=== PATIENT | male | born 1970 | race Caucasian/White ===

== ENCOUNTER 2024-04-15 01:39 | Inpatient (IN) | payer OTHER, SELFPAY ==
[2024-04-14 18:19] VITALS: BP 182/100
[2024-04-14 19:00] LABS: % Basophils 0.2 % (0-2); % Immature Granulocytes 0.5 % (0-0.5); % Lymphocytes 2.2 % (20.5-51.1); % Monocytes 2.8 % (1.7-9.3); % Neutrophils 94.3 % (42.2-75.2); Absolute Immature Granulocytes 0.1 10^3/uL (0-0.05); Absolute Lymphocytes 0.4 10^3/uL (1.2-3.4); Absolute Monocytes 0.5 10^3/uL (0.1-0.6); Absolute Neutrophils 17.6 10^3/uL (1.4-6.5); Hematocrit 49.2 % (39.0-52.0); Hemoglobin 17.3 g/dL (13.0-18.0); Mean Corp Hgb Conc. 35.2 g/dL (33.0-37.0); Mean Corpuscular Volume 82.6 fL (80.0-94.0); Mean Platelet Volume 8.7 fL (7.4-10.4); Nucleated Red Blood Cells % 0 % (-); Platelet Count 369 10^3/uL (130-400); Red Blood Cell Count 5.96 10^6/uL (4.70-6.10); Red Cell Dist. Width 13.2 % (11.5-14.5); White Blood Cell Count 18.7 10^3/uL (4.8-10.8)
[2024-04-14 19:13] LABS: ALT (SGPT) 27 U/L (0-50); AST (SGOT) 27 U/L (17-59); Albumin 4.7 g/dl (3.5-5.0); Alkaline Phosphatase 92 U/L (38-126); Blood Urea Nitrogen 16 mg/dl (9-20); Calcium 9.9 mg/dl (8.4-10.2); Carbon Dioxide 15 mmol/L (22-30); Chloride 104 mmol/L (98-107); Glucose 162 mg/dl (70-99); Potassium 4.6 mmol/L (3.5-5.1); Sodium 134 mmol/L (135-145); Total Bilirubin 1.1 mg/dl (0.2-1.3); Total Protein 7.6 g/dl (6.3-8.2); Urine Albumin 4+ (Neg - Trace); Urine Bilirubin 1+ (Negative); Urine Character Cloudy (Clear); Urine Color Brown; Urine Glucose 1+ (Negative); Urine Ketone 3+ (Negative); Urine Leukocyte 1+ (Negative); Urine Nitrite Negative (Negative); Urine Occult Blood 4+ (Negative); Urine Specific Gravity 1.025 (<1.030); Urine Urobilinogen 1+ (Neg - 1+); eGFR > 60.00
[2024-04-14 19:27] VITALS: BMI 32.7
--- NOTE | 2024-04-14 19:27 | EDRN ---
Pt had lithotripsy in [place], [place] today. Pt left iw no pain. Pt developed pain that steadily increased. Pt called doctor and said he was unable to take tylenol because he was nauseous. He was told to wait a little bit. Pt took tylenol on way
home from having procedure done and he vomited on way home. Every time pt tried to take tylenol, he vomited. Pt advised to go to ED. Pt has pain L kidney. Pt denies nausea currently, did have it earlier. Pt says he thinks he is dehydrated. Pt
has urinated few times since procedure.
--- NOTE | 2024-04-14 19:34 | ED.GENMED ---
History of Present Illness
General
Chief Complaint: Post Operative Problem(s)
Time Seen by Provider: 04/14/24 19:28
History of Present Illness
History of Present Illness:
53-year-old male history of kidney stones status post lithotripsy this morning presenting with left flank pain. Patient states that he was discharged from hospital around noon, pain started around 1 PM. Patient reports attempting to take Tylenol
but had episode of vomiting. Patient reports hematuria since procedure which has been at baseline for patient. No diarrhea or fevers
Phy Exam
Physical Exam
Physical Exam:
General: Alert, acute distress secondary to pain
Head: NCAT
Eyes: clear conjunctiva
Neck: supple
Cardiac: regular rate and rhythm, no murmur
Lungs: clear to auscultation bilaterally. No wheezes, rales, or rhonchi. Speaking full unlabored sentences. No respiratory distress.
Abdomen: soft, nondistended nontender. No rebound or guarding. left cva tenderness. no overlying ecchymosis
MSK: no lower extremity edema bilaterally. No deformity
Skin: warm, diaphoretic
Neuro: Alert and oriented x3. no focal deficits
Course
Orders/Labs/Results
Orders:
Orders
04/14/24 18:40
Complete Blood Count/With Diff Urgent
Comprehensive Metabolic Panel Urgent
Lactic Acid Urgent
Urinalysis Reflex To Culture Urgent
Date Specimen was Collected: 04/14/24
Time Specimen was Collected: 18:26
Urine Microscopic Reflex Cult Urgent
Urine Culture Urgent
SONAM Source: U
Specimen Description:
Date Specimen was Collected: 04/14/24
Time Specimen was Collected: 18:26
04/14/24 19:33
CT Abd/pelvis W Iv Cont Urgent
Comment:
Reason For Exam: left flank pain, lithotriopsy today
Morphine Sulfate 4 mg IV NOW STA
Ondansetron Injectable [Zofran] 4 mg IV NOW STA
04/14/24 19:34
0.9% Sodium Chloride 1000 ml [Nss] 1,000 ml IV BOLUS
04/14/24 20:59
Morphine Sulfate 4 mg IV NOW STA
04/14/24 23:29
HYDROmorphone [Dilaudid] 0.5 mg IV NOW STA
Abnormal Lab Results
04/14/24
18:40
WBC 18.7 H 10^3/uL
(4.8-10.8)
Abs Immat Gran (auto) 0.1 H 10^3/uL
(0-0.05)
Absolute Neuts (auto) 17.6 H 10^3/uL
(1.4-6.5)
Absolute Lymphs (auto) 0.4 L 10^3/uL
(1.2-3.4)
Neutrophils % 94.3 H %
(42.2-75.2)
Lymphocytes % 2.2 L %
(20.5-51.1)
Sodium 134 L mmol/L
(135-145)
Carbon Dioxide 15 L mmol/L
(22-30)
Glucose 162 H mg/dl
(70-99)
Lactic Acid 3.0 H mmol/L
(0.7-2.0)
Urine Ketones 3+ A
(Negative)
Ur Occult Blood Reflex 4+ A
(Negative)
Urine Bilirubin 1+ A
(Negative)
Leukocyte Esterase Rfl 1+ A
(Negative)
Urine RBC 60-70 A /HPF
(0-2)
Urine Bacteria (Reflex) Few A
(Negative)
Urine Glucose 1+ A
(Negative)
Urine Albumin (Reflex) 4+ A
(Neg - Trace)
04/14/24 18:40
04/14/24 18:40
Vital Signs
Initial and Last Documented VS:
Initial Vital Signs
Temp Pulse Resp BP Pulse Ox
98.4 F 66 35 182/100 100
04/14/24 18:19 04/14/24 18:19 04/14/24 18:19 04/14/24 18:19 04/14/24 18:19
Last Documented Vital Signs
Temp Pulse Resp BP Pulse Ox
98.3 F 98 24 179/103 96
04/14/24 23:40 04/15/24 00:00 04/14/24 19:40 04/15/24 00:00 04/15/24 00:00
MDM/Problems Addressed
Differential Diagnosis Includes:
Kidney stone, UTI, perforation
MDM/Problems Addressed:
Labs reviewed. Leukocytosis with white count 18.7. Electrolytes within normal limits. Elevated lactic acid. UA shows blood but low suspicion for infection. CT abdomen pelvis reviewed, significant for Large left perinephric hematoma, with small
focus of active hemorrhage.
Call placed to patient's urologist, Dr. Marsh at [facility]. Discussed with urology at [facility] who recommended no surgical intervention at this time, admission for serial H&H and pain control, agreed with transfer to patient's urology team. After
multiple attempts, unable to get in touch with urology at [facility] for transfer. Discussed with hospitalist for admission. Discussed with pt who is agreeable for admission. Pt states pain controlled with Dilaudid
*Critical Care Note
Total Time (30-74mins, 75-104mins- exclusive of procedures): Not Applicable
ED Attending Note
-
Portions of this chart may have been created with voice recognition software.� Occasional wrong word or��sound alike� substitutions may have occurred due to the inherent limitations of voice recognition software.
Discharge Plan
Departure
Patient Disposition: Admit
Date of Disposition: 04/15/24
Time of Disposition: 01:00
Presentation/result/management discussed w/ accepting MD/DO: Hospitalist
Discharge Problem:
Perinephric hematoma
Prescriptions:
No Action
trazodone 50 mg Tablet
50 mg PO HS
tamsulosin 0.4 mg Capsule
0.4 mg PO DAILY
dextroamphetamine-amphetamine 20 mg Tablet
20 mg PO DAILY PRN (Reason: adhd)
dextroamphetamine-amphetamine [Adderall XR] 30 mg Capsule,Extended Release 24hr
30 mg PO DAILY
irbesartan 300 mg Tablet
300 mg PO DAILY
vilazodone [Viibryd] 40 mg Tablet
40 mg PO DAILY
Referrals:
Doe Cao MD [Family Provider] -
Interventions
Interventions:
*Risk Screen - Suicide Last Done: 04/14/24 19:30
*General Assessment Last Done: 04/14/24 19:22
*Neglect/Abuse Screening Last Done: 04/14/24 19:30
*ED COVID-19 Vaccine History Last Done: 04/14/24 19:22
ED-Skin Assessment Last Done: 04/14/24 19:31
Discharge Date and Time
Print Language: KISWAHILI
[2024-04-14] MEDS: NSS 1000 IV (19:38)
[2024-04-14] MEDS: ZOFRAN 4 MG IV (19:38)
[2024-04-14 19:40] VITALS: BP 191/110
[2024-04-14] MEDS: MORPHINE SULFATE 4 MG IV ×2 (19:41→21:04)
[2024-04-14 19:42] LABS: Urine Amorphous Seen; Urine Red Blood Cell 60-70 /HPF (0-2)
[2024-04-14 19:47] LABS: Urine Calcium Oxalate Crystals Seen
[2024-04-14 19:50] LABS: Urine Bacteria Few (Negative)
[2024-04-14 20:00] VITALS: BP 183/113
[2024-04-14 21:00] VITALS: BP 171/108
[2024-04-14 22:00] VITALS: BP 207/106
[2024-04-14 23:00] VITALS: BP 190/117
[2024-04-14] MEDS: DILAUDID 0.5 MG IV (23:33)
[2024-04-15] VITALS (7 sets, daily range): BP systolic 116–188; BP diastolic 78–114; BMI 33.5
--- NOTE | 2024-04-15 01:14 | HPS.HSE ---
Family Physician
-
Family Physician: Doe Cao
Chief Complaint
-
Left-sided flank pain after lithotripsy
History of Present Illness
This is a 53-year-old Medical history significant for nephrolithiasis, hypertension, who is postop day 1 status post left lithotripsy coming in with acute left-sided flank pain and found to have a left-sided perinephric hematoma.
Patient reports history of nephrolithiasis with nonobstructing kidney stones mostly on the left. He reported that he had a intermittent flank pain for several months. We followed up with urology at [place] and had a scheduled procedure done
yesterday. Patient was feeling well prior to procedure. Underwent lithotripsy with print removal of all stones. Is unable to tell me the size or distribution of the stones at removal. Patient apparently felt okay immediately after the procedure
but was still under some degree of anesthesia. He said a few hours later after the anesthesia wore off he noticed severe flank pain with nausea and some vomiting. Pain was intolerable and he called for help from the office but will unable to reach
anyone. We decided to go to the emergency department. Initially was at a different emergency department but was not seen early now so he came to dose down.
He denies having any fevers or chills. Denies having any urinary symptoms.
In the emergency department he was afebrile, hypertensive to 180/100, satting at 96% on room air. He had a white count of 18, hemoglobin was 17.3, electrolytes notable for a bicarb of 15 but otherwise unremarkable. Creatinine was 1.2 with a BUN of
11. UA is positive for blood, trace leukocyte esterase and no nitrites. A CT of the abdomen and pelvis revealed a large left perinephric hematoma, small focus of active hemorrhage. Left intrarenal nonobstructing calculi.
Medical History
Past Medical History
Past Medical History: Reports HTN and Other (Nephrolithiasis)
Past Surgical History: Reports Urological
Social History
Tobacco: Non-smoker
Alcohol: Occasional
Drug: None
Personal: Single
Living: Alone
Employment: Employed
Family History
Family History: Hypertension
Allergies / Home Medications
Allergies reflects when Allergies were last updated in [facility].
Home Medications with original date entered in [facility]
Allergy/Medication List:
Allergies
Allergy/AdvReac Type Severity Reaction Status Date / Time
Penicillins Allergy Hives Verified 04/14/24 18:25
Home Medications
dextroamphetamine-amphetamine 20 mg tablet 20 mg PO DAILY PRN adhd 04/14/24
dextroamphetamine-amphetamine ER 30 mg 24hr capsule,extend release (Adderall XR) 30 mg PO DAILY 04/14/24
irbesartan 300 mg tablet 300 mg PO DAILY 04/14/24
tamsulosin 0.4 mg capsule 0.4 mg PO DAILY 04/14/24
trazodone 50 mg tablet 50 mg PO HS 04/14/24
vilazodone 40 mg tablet (Viibryd) 40 mg PO DAILY 04/14/24
Review of Systems
-
History Source: Patient
Constitutional: Reports No Symptoms
EENT: Reports No Symptoms
Respiratory: Reports No Symptoms
Cardiac: Reports No Symptoms
Abdomen/GI: Reports No Symptoms
: Reports Flank Pain
Musculoskeletal: Reports No Symptoms
Skin: Reports No Symptoms
Neurological: Reports No Symptoms
Endocrine: Reports No Symptoms
Hematologic/Lymphatic: Reports No Symptoms
Psych: Reports No Symptoms
Physical Exam
Vital Signs
Vital Signs
Temp Pulse Resp BP Pulse Ox
98.3 F 98 24 179/103 96
04/14/24 23:40 04/15/24 00:00 04/14/24 19:40 04/15/24 00:00 04/15/24 00:00
Physical Exam
General: Well Developed, Well Nourished and Pain
HEENT: NormoCephalic, Anicteric, Moist mucous membranes and Atraumatic
Respiratory: Clear
Cardiac: S1/S2 and Regular Rhythm
Breast: Deferred by me
GI: Soft
Rectal: Deferred by Provider
Genito-urinary: Costovertebral angle tend
Musculoskeletal: No Clubbing, No Cyanosis and No Edema
Skin: Warm
Neuro: AO x 3 and Nonfocal/grossly intact
Hematologic/Lymphatic: No Lymphadenopathy
Psych: Calm
Laboratory Results
-
04/14/24 18:40
04/14/24 18:40
Laboratory Results
Lactic Acid 3.0 mmol/L (0.7-2.0) H 04/14/24 18:40
Total Bilirubin 1.1 mg/dl (0.2-1.3) 04/14/24 18:40
AST 27 U/L (17-59) 04/14/24 18:40
ALT 27 U/L (0-50) 04/14/24 18:40
Alkaline Phosphatase 92 U/L (38-126) 04/14/24 18:40
Data Reviewed
-
CT Scan: Report Reviewed by me
Lab Data: Labs Reviewed by me
Old Records: Reviewed
Impression/Plan
-
IMPRESSION:
53-year-old with history of nephrolithiasis, status post left-sided lithotripsy postop day #1 coming with subsequent left-sided flank pain. Found to have a large left sided perinephric hematoma. HD stable. Hgb 17. D/W urology.
PLAN:
1. Post operative complication of lithotripsy with left sided perinephric hematoma, HD stable. Hgb stable.
- admit to med/surg
- no plans for surgery at this time
- diet as tolerated
- s/p IV fluids in ED, monitor for now
- type and screen, serial h/h
- analgesics
- continue home medications
- urology consulted and notified.
DVT PPX - SCDs
Code status - full code
--- NOTE | 2024-04-15 01:40 | EDRN ---
called pharmacy for georgieapro
[2024-04-15] MEDS: AVAPRO 300 MG PO ×2 (01:51→21:22)
--- NOTE | 2024-04-15 02:50 | PTCARENOTE ---
Received pt from ED at 02:45. Walked from stretcher to bed. Pt reported pain is 6/10 and is requesting pain medicine. [place] texted Dr. Garvey asking if the pt should get another lactic drawn as last one was drawn at 18:[address] Garvey
said no repeat lactic at this time.
[2024-04-15] MEDS: DILAUDID 1 MG IV ×2 (03:12→07:57)
[2024-04-15] MEDS: TYLENOL 650 MG PO ×5 (03:12→20:16)
[2024-04-15 07:44] LABS: Hematocrit 44.3 % (39.0-52.0); Hemoglobin 15.7 g/dL (13.0-18.0); Mean Corp Hgb Conc. 35.4 g/dL (33.0-37.0); Mean Corpuscular Hgb 29.3 pg (27.0-31.0); Mean Corpuscular Volume 82.8 fL (80.0-94.0); Platelet Count 342 10^3/uL (130-400); Red Blood Cell Count 5.35 10^6/uL (4.70-6.10); Red Cell Dist. Width 13.4 % (11.5-14.5); White Blood Cell Count 16.2 10^3/uL (4.8-10.8)
[2024-04-15 08:06] LABS: Blood Urea Nitrogen 15 mg/dl (9-20); Calcium 8.8 mg/dl (8.4-10.2); Carbon Dioxide 19 mmol/L (22-30); Chloride 103 mmol/L (98-107); Estimated Creatinine Clearance 99 ml/min; Glucose 113 mg/dl (70-99); Potassium 4.2 mmol/L (3.5-5.1); Sodium 135 mmol/L (135-145); eGFR > 60.00
--- NOTE | 2024-04-15 10:19 | W.PN.URO.CBU ---
Today's Communication / Plan
-
if stable hgb home when can transition to po analgesics
Assessment / Plan
-
perinephric hemorrhage contained in gerota space hgb 17 yesterday await today creatinine and hemodynamically stable if hgb stable then home when can transition to po pain rxs
Diagnosis
-
Date of Service: April 15, 2024
-
Patient Diagnosis:s/p left eswl pos t op perinephric hematoma , hemorrhage stable but pain
Post Op Day:
Subjective
-
feeling better today
Objective
-
Vital Signs
Temp Pulse Resp BP Pulse Ox
98.1 F 108 16 134/93 97
04/15/24 07:03 04/15/24 07:03 04/15/24 07:03 04/15/24 07:03 04/15/24 07:03
Intake and Output
04/14/24 04/15/24 04/16/24
06:59 06:59 06:59
Intake Total 1100 / 1100
Output Total 650 / 650
Balance 450 / 450
Intake:
Oral fluids 100 / 100
IV fluids (Total) 1000 / 1000
NS 1000 / 1000
Output:
Urine, Voided 650 / 650
Laboratory Results
04/15/24 06:13
Review of Systems
-
: Flank Pain
Physical Exam
-
General - well developed, well nourished, no acute distress
Chest - clear bilaterally
Abdomen - soft, non-tender, positive bowel sounds, no CVAT, no incisional pain or distention
Genitalia - normal
Rectal - normal
Skin - warm & dry with no rash
Neuro - AOx3, no motor deficits
Extremities - no clubbing, no cyanosis, no edema
Incision - clean, dry
Dressing - clean, dry, intact
Care Review
Data Reviewed
Discussed with: Nursing
CT Scan: Image Pers Reviewed
[2024-04-15 10:50] LABS: Lactic Acid 0.8 mmol/L (0.7-2.0)
--- NOTE | 2024-04-15 12:01 | W.PN.HOSP.TC ---
Today's Communication/Plan
-
Watch Hb
Assessment / Plan
Assessment / Plan
53-year-old male with nephrolithiasis had lithotripsy on the left side done at [facility] this was a scheduled procedure he was feeling well but a few hours later had severe flank pain nausea and vomiting. He was not able to reach his
urologist and came to ER at [place].
CT scan of the abdomen and pelvis 04/14/2024-large left perinephric hematoma with small focus of active hemorrhage. Left intrarenal nonobstructing calculi. No left ureteral calculus or obstructive uropathy. Minor diverticulosis without evidence of
diverticulitis.
Pain Much better
CVS: S1-S2 normal
Chest: CTA B/L
Abdomen: Soft, NT , Bowel sounds present
Extremities: No edema, normal pulses
[employer]: Non focal exam
# Acute left-sided perinephric hematoma
Likely postprocedure complication after lithotripsy done at [place]
History of nephrolithiasis
Hemoglobin stable
IV fluids and pain control
Urology consulted, following
Follow hemoglobin
# Leukocytosis-possible stress reaction. Add antibiotics if urine cultures come back positive or fever. Because of bleeding it is difficult to say the white count in the urine is significant or not.
# Lactic acidosis-repeat level normal
# Hyperglycemia-check hemoglobin A1c
# Hypertension-continue irbesartan
# Prostate disease-continue Flomax
# Depression-continue trazodone, Viibryd
# ADD-Adderall
# Diverticulosis
# DVT prophylaxis-SCDs
# Full code
Discussed with urology
Discussed with nursing
Got a message that [facility] transfer center called. Spoke to patient he does not want to be transferred to [facility], he wants to stay here
Anticipated Discharge: Within 24 hours
Subjective/Interval History
-
Date of Service: April 15, 2024
Objective Data
-
Labs:
Laboratory Results
04/15/24 04/15/24 04/15/24
06:13 14:00 22:00
WBC 16.2 H
Hgb 15.7 Pending Pending
Hct 44.3 Pending Pending
Plt Count 342
Sodium 135
Potassium 4.2
Chloride 103
Carbon Dioxide 19 L
BUN 15
Creatinine 1.0
Glucose 113 H
Calcium 8.8
Vital Signs:
Vital Signs
Temp Pulse Resp BP Pulse Ox
98.1 F 108 16 134/93 97
04/15/24 07:03 04/15/24 07:03 04/15/24 07:03 04/15/24 07:03 04/15/24 07:03
I&O
04/14/24 04/15/24 04/16/24
06:59 06:59 06:59
Intake Total 1100 / 1100
Output Total 650 / 650
Balance 450 / 450
[2024-04-15] MEDS: SENOKOT 17.2 MG PO (12:24)
[2024-04-15] MEDS: MIRALAX 17 GRAMS PO (12:24)
[2024-04-15] MEDS: COLACE 100 MG PO (12:24)
[2024-04-15 13:49] LABS: Glycohemoglobin (HgbA1c) 5.2 % (4.0-5.6)
[2024-04-15 14:12] LABS: Hematocrit 43.3 % (39.0-52.0); Hemoglobin 15.3 g/dL (13.0-18.0)
[2024-04-15] MEDS: SENOKOT PO (20:37)
[2024-04-15] MEDS: DESYREL 50 MG PO (21:23)
[2024-04-15] MEDS: FLOMAX 0.4 MG PO (21:23)
[2024-04-15 22:17] LABS: Hematocrit 42.2 % (39.0-52.0); Hemoglobin 14.9 g/dL (13.0-18.0)
[2024-04-16] MEDS: TYLENOL 650 MG PO ×2 (01:41→05:51)
[2024-04-16] MEDS: TYLENOL PO ×2 (05:02→08:05)
[2024-04-16 06:00] LABS: Hematocrit 41.5 % (39.0-52.0); Hemoglobin 14.6 g/dL (13.0-18.0); Mean Corp Hgb Conc. 35.2 g/dL (33.0-37.0); Mean Corpuscular Hgb 29.6 pg (27.0-31.0); Mean Platelet Volume 9.3 fL (7.4-10.4); Platelet Count 285 10^3/uL (130-400); Red Blood Cell Count 4.94 10^6/uL (4.70-6.10); Red Cell Dist. Width 13.6 % (11.5-14.5); White Blood Cell Count 10.4 10^3/uL (4.8-10.8)
[2024-04-16 06:19] LABS: Blood Urea Nitrogen 13 mg/dl (9-20); Calcium 8.6 mg/dl (8.4-10.2); Carbon Dioxide 23 mmol/L (22-30); Chloride 102 mmol/L (98-107); Estimated Creatinine Clearance 99 ml/min; Glucose 103 mg/dl (70-99); Sodium 137 mmol/L (135-145); eGFR > 60.00
[2024-04-16 07:34] VITALS: BP 141/93
[2024-04-16] MEDS: MIRALAX PO (08:05)
[2024-04-16] MEDS: SENOKOT PO (08:05)
--- NOTE | 2024-04-16 09:32 | W.PN.URO.CBU ---
Today's Communication / Plan
-
per hospitalist please make disk of ct scan to rtake home
Assessment / Plan
-
perinephric hemorrhage contained in gerota space hgb 17 yesterday and 14.6 today creatinine and hemodynamically stable from gu point of view can be discherged on analgesics and take ct scan disk arrange follow up hgb
Diagnosis
-
Date of Service: April 16, 2024
-
Patient Diagnosis:
Post Op Day:
Patient Diagnosis:s/p left eswl pos t op perinephric hematoma , hemorrhage stable but pain
Post Op Day:
Subjective
-
3/ 10 pain only taking tylenol
Objective
-
Vital Signs
Temp Pulse Resp BP Pulse Ox
98.2 F 102 22 141/93 95
04/16/24 07:34 04/16/24 07:34 04/16/24 07:34 04/16/24 07:34 04/16/24 08:10
Intake and Output
04/15/24 04/16/24 04/17/24
06:59 06:59 06:59
Intake Total 1100 / 1100 1830 / 1830
Output Total 650 / 650 270 / 270
Balance 450 / 450 1560 / 1560
Intake:
Oral fluids 100 / 100 1830 / 1830
IV fluids (Total) 1000 / 1000
NS 1000 / 1000
Output:
Urine, Voided 650 / 650 270 / 270
Other:
Number of approximated MODERATE 3
amounts of urine
Laboratory Results
04/16/24 04:04
04/16/24 04:04
Review of Systems
-
: Flank Pain
Physical Exam
-
General - well developed, well nourished, no acute distress
Chest - clear bilaterally
Abdomen - soft, non-tender, positive bowel sounds, no CVAT, no incisional pain or distention
Genitalia - normal
Rectal - normal
Skin - warm & dry with no rash
Neuro - AOx3, no motor deficits
Extremities - no clubbing, no cyanosis, no edema
Incision - clean, dry
Dressing - clean, dry, intact
Care Review
Data Reviewed
Discussed with: Nursing
--- NOTE | 2024-04-16 10:04 | W.PN.HOSP.TC ---
Today's Communication/Plan
-
Discharge
Assessment / Plan
Assessment / Plan
53-year-old male with nephrolithiasis had lithotripsy on the left side done at [facility] this was a scheduled procedure he was feeling well but a few hours later had severe flank pain nausea and vomiting. He was not able to reach his
urologist and came to ER at [place].
CT scan of the abdomen and pelvis 04/14/2024-large left perinephric hematoma with small focus of active hemorrhage. Left intrarenal nonobstructing calculi. No left ureteral calculus or obstructive uropathy. Minor diverticulosis without evidence of
diverticulitis.
Pain Much better
CVS: S1-S2 normal
Chest: CTA B/L
Abdomen: Soft, NT , Bowel sounds present
Extremities: No edema, normal pulses
[employer]: Non focal exam
# Acute left-sided perinephric hematoma
Likely postprocedure complication after lithotripsy done at [place]
History of nephrolithiasis
Hemoglobin stable
Discussed with urology -okay for discharge
# Leukocytosis-possible stress reaction. Cultures negative
# Lactic acidosis-repeat level normal
# Hyperglycemia-hemoglobin A1c 5.2
# Hypertension-continue irbesartan
# Prostate disease-continue Flomax
# Depression-continue trazodone, Viibryd
# ADD-Adderall
# Diverticulosis
# DVT prophylaxis-SCDs
# Full code
Discussed with urology
Discussed with nursing
Anticipated Discharge: Today
Subjective/Interval History
-
Date of Service: April 16, 2024
Objective Data
-
Labs:
Laboratory Results
04/15/24 04/16/24
22:05 04:04
WBC 10.4
Hgb 14.9 14.6
Hct 42.2 41.5
Plt Count 285
Sodium 137
Potassium 4.0
Chloride 102
Carbon Dioxide 23
BUN 13
Creatinine 1.0
Glucose 103 H
Calcium 8.6
Vital Signs:
Vital Signs
Temp Pulse Resp BP Pulse Ox
98.2 F 102 22 141/93 95
04/16/24 07:34 04/16/24 07:34 04/16/24 07:34 04/16/24 07:34 04/16/24 08:10
I&O
04/15/24 04/16/24 04/17/24
06:59 06:59 06:59
Intake Total 1100 / 1100 1830 / 1830
Output Total 650 / 650 270 / 270
Balance 450 / 450 1560 / 1560
--- NOTE | 2024-04-16 10:11 | W.DS.TRANS ---
Addendum entered and electronically signed by Sonia Ga MD 04/16/24 14:31:
Dictation- [id number]
Original Note:
DC Summary - Research Technician
-
Discharge Instructions:
Discharge Diagnosis/Procedures Left-sided perinephric hematoma
Hypertension
Prostate disease
Depression
Diverticulosis
Diet As tolerated
Activity No strenuous activity
Driving Restrictions As prior to admission
Blood Work bmp 4 days
Instructions:
Stand-Alone Forms:
Changes to Home Medications: Yes
Discharge Medications:
DC Medications w/original date entered in [facility]
dextroamphetamine-amphetamine 20 mg tablet 20 mg PO DAILY PRN adhd 04/14/24
dextroamphetamine-amphetamine ER 30 mg 24hr capsule,extend release (Adderall XR) 30 mg PO DAILY ADHD #0 caps 04/16/24
irbesartan 300 mg tablet 300 mg PO DAILY Blood pressure #0 tabs 04/16/24
tamsulosin 0.4 mg capsule 0.4 mg PO DAILY Urinary issue #0 caps 04/16/24
tramadol 50 mg tablet 50 mg PO Q6HPRN PRN moderate pain #20 tabs 04/16/24
trazodone 50 mg tablet 50 mg PO HS Sleep #0 tabs 04/16/24
vilazodone 40 mg tablet (Viibryd) 40 mg PO DAILY Mental Health/Anxiety #0 tabs 04/16/24
Home Medication Changes
new
Tramodol
Pending Results: No
--- NOTE | 2024-04-16 10:51 | CM ---
Initial assessment completed at bedside
pharmacy verified: [facility] @ [address]
Patient lives alone in a condo; independent with ambulation and ADLs; no DME
Sister will transport home
Plan: Discharge to home today; no needs
== END 2024-04-16 11:10 | disposition home or self-care (01) | DRG 699 ==
LOC: 2 SOUTH 01:39
PROVIDERS: Emergency Medicine; ADMITTING PHYSICIAN Internal Medicine; ATTENDING PHYSICIAN Hospitalist; CONSULT PHYSICIAN Specialist; EMERGENCY PHYSICIAN Emergency Medicine; FAMILY PHYSICIAN Internal Medicine
DX: S37.012A Minor contusion of left kidney, initial encounter (principal); E87.20 Acidosis, unspecified; I10 Essential (primary) hypertension; F32.A Depression, unspecified; K57.30 Diverticulosis of large intestine without perforation or abscess without bleeding; N42.9 Disorder of prostate, unspecified; Z87.442 Personal history of urinary calculi; Y83.8 Other surgical procedures as the cause of abnormal reaction of the patient, or of later complication, without mention of misadventure at the time of the procedure
CPT/HCPCS: 74177; 80048; 80053; 81003; 81015; 83036; 83605; 85014; 85018; 85025; 85027; 86850; 86900; 86901; 87086; 96361; 96374; 96375; 96376; 99285; Q9967